=== PATIENT | female | born 1950 | race Caucasian/White ===

== ENCOUNTER 2024-04-17 13:16 | Emergency (ER) | payer OTHER, SELFPAY ==
[2024-04-17 13:21] VITALS: BP 130/66; PULSE 86; TEMP 36.5; O2SAT 94; BMI 31.8
--- NOTE | 2024-04-17 13:33 | XR_ITS ---
The [address] [address] Patient Name: SRIRAM CASTILLO MRN: [id number] date: 1950 Sex: F Assigned Patient Location: ED.MAIN Current Patient Location: ER Accession/Order Number: [id number] Exam Date: 04/17/2024 13:48 Report Date: 04/17/2024 14:21 At the request of: TEO LAI Procedure: XR knee RT 4V EXAM: XR knee RT 4V HISTORY: pain recent fall from standing with pain and bruising. COMPARISON: None. TECHNIQUE: PA, right and left oblique, lateral view right knee x-ray FINDINGS: No fracture or joint effusion. Moderate medial femoral tibial joint narrowing with mild peripheral spurring. Tibial spine spurring and spurring off the patella felt to be degenerative. Minimal subchondral lucency proximal tibia medially felt to be degenerative. Diffuse arterial vascular calcification. 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 Negative for fracture or joint effusion. Electronically authenticated by: DEANNA HENDRIX Date: 04/17/2024 14:21
--- NOTE | 2024-04-17 14:09 | ED.LOWEXI1 ---
HPI HPI - Extremity Injury (Lower) General Chief Complaint: Extremity Injury, Lower Stated Complaint: RT LEG AND KNEE PAIN Time Seen by Provider: 04/17/24 13:55 Source: patient and family Mode of arrival: walk-in History of Present Illness HPI Narrative: This patient is here complaining of pain in her right knee. She fell several days ago. Historically she confirms that she has weakness of that left leg and occasionally uses a cane but does not consistently use a walker. She had previous back surgery and had weakness in that left leg ever since she had a procedure. She fell couple days ago and fell forward striking her right knee in the area pain is just distal to the patella. She has no pain in her hip or lower extremity. She also takes Coumadin for cardiovascular conditions. She did not hit her head or neck. She has Dr. Navas in [facility] as her orthopedic surgeon that she prefers to see. Otherwise she just came in to have her knee evaluated. She has never had surgery on that knee. Related Data Home Medications ?Medication ?Instructions ?Recorded ?Confirmed atorvastatin 10 mg tablet mg 04/17/24 citalopram 20 mg tablet mg 04/17/24 ferrous sulfate 325 mg (65 mg mg 04/17/24 iron) tablet (FeroSul) glipizide 5 mg tablet mg 04/17/24 hydrochlorothiazide 25 mg tablet mg 04/17/24 losartan 100 mg tablet mg 04/17/24 metformin 1,000 mg tablet mg 04/17/24 metoprolol succinate 50 mg mg PO 04/17/24 tablet,extended release 24 hr mirabegron 50 mg tablet,extended mg PO 04/17/24 release 24 hr (Myrbetriq) nitrofurantoin 04/17/24 monohydrate/macrocrystals 100 mg capsule oxycodone-acetaminophen 10 mg-325 tab 04/17/24 mg tablet pregabalin 100 mg capsule mg 04/17/24 ropinirole 0.5 mg tablet mg 04/17/24 warfarin 5 mg tablet mg 04/17/24 Allergies Allergy/AdvReac Type Severity Reaction Status Date / Time No Known Drug Allergies Allergy Verified 04/17/24 13:26 Opioid HPI Opioid Management Most Recent Pain and Opioid Data: No Data to Display Exam Narrative Exam Narrative: Very pleasant here with her . Vital signs are stable. She is afebrile. Examining her knees. Most the bruising and tenderness is on the distal patella on the right side. The left knee has no effusion erythema warmth or acute trauma. Examining that left leg though she does have slight foot drop with substantial weakness of the extensor houses longus consistent with the previous back surgery. When I saw her coming out of the restroom she nearly stumbled and fell here in the ER while using a cane. We had a very very very lengthy discussion about that with her and her the extreme fall risk and the fact that she is using Coumadin. Moving to the right knee there is felt to be a small effusion there. Tender this is noted over the patella. There is no tenderness over the joint line. I did not stress test her knee. The neurovascular examination of the distal extremity is normal. Constitutional Vital Signs, click to edit/add: Last Vital Signs Temp 97.7 F 04/17/24 13:21 Pulse 86 04/17/24 13:21 Resp 18 04/17/24 13:21 BP 130/66 04/17/24 13:21 Pulse Ox 94 L 04/17/24 13:21 O2 Del Method Room Air 04/17/24 13:21 Course Vital Signs Vital signs: Vital Signs Temperature 97.7 F 04/17/24 13:21 Pulse Rate 86 04/17/24 13:21 Respiratory Rate 18 04/17/24 13:21 Blood Pressure 130/66 04/17/24 13:21 Pulse Oximetry 94 L 04/17/24 13:21 Oxygen Delivery Method Room Air 04/17/24 13:21 Temperature 97.7 F 04/17/24 13:21 Pulse Rate 86 04/17/24 13:21 Respiratory Rate 18 04/17/24 13:21 Blood Pressure 130/66 04/17/24 13:21 Pulse Oximetry 94 L 04/17/24 13:21 Oxygen Delivery Method Room Air 04/17/24 13:21 MDM - Extremity Injury (Lower) MDM Narrative Medical decision making narrative: X-rays confirm degenerative changes with no acute findings. We tried contacting her orthopedic doctor but the office was not responding. She and her understand the importance of using a walker so as to minimize the risk of falling. She prefers to follow-up with her orthopedic doctor and not our Dr. Zeng. She is apply ice to this area. There is no evidence of DVT in her calf or thigh area. There is felt to be a hematoma and effusion on that right knee Discharge Plan Discharge Stand Alone Forms: Portal Instructions Chief Complaint: Extremity Injury, Lower Clinical Impression: Contusion of knee Patient Disposition: Home, Self-Care Time of Disposition Decision: 14:33 Prescriptions / Home Meds: No Action atorvastatin 10 mg tablet metoprolol succinate 50 mg tablet extended release 24 hr PO citalopram 20 mg tablet oxycodone-acetaminophen 10-325 mg tablet ferrous sulfate [FeroSul] 325 mg (65 mg iron) tablet metformin 1,000 mg tablet ropinirole 0.5 mg tablet warfarin 5 mg tablet hydrochlorothiazide 25 mg tablet losartan 100 mg tablet glipizide 5 mg tablet nitrofurantoin monohyd/m-cryst 100 mg capsule pregabalin 100 mg capsule mirabegron [Myrbetriq] 50 mg tablet extended release 24 hr PO Print Language: Cameroonian Additional Instructions: Call and see your orthopedic doctor this week. Ice and elevate your knee till then. Use a walker at all times. Notify your heart doctor of your fall risk situation Referrals: Rosi Dow [Primary Care Provider] - 1 week
== END 2024-04-17 14:52 | disposition home or self-care (01) ==
PROVIDERS: Emergency Provider Emergency Medicine Emergency Medical Services
DX: S80.01XA Contusion of right knee, initial encounter (principal); Z79.01 Long term (current) use of anticoagulants; W19.XXXA Unspecified fall, initial encounter
CPT/HCPCS: 73564; 99283